=== PATIENT | female | born 1975 | race Caucasian/White ===

== ENCOUNTER 2020-01-26 17:49 | Emergency (ER) | payer OTHER ==
--- NOTE | 2020-01-26 17:54 | PDOC ---
Attending Attestation - Resident Resident Name: Jluien Srivastava - ED Attending Attestation I have performed the following: I have examined & evaluated the patient, The case was reviewed & discussed with the resident, I agree w/resident's findings & plan, Exceptions are as noted - HPI HPI: 01/26/20 18:04 44yo female with hx of breast ca s/p b/l mastectomy and recontructive sx, last sx was 2m ago at [facility], with epigastric burning with a burning sensation that radiates through her chest. No assoc sob. Staets sour taste in back of her mouth. Pt with amox about a week ago for a sinus infection, which has improved, then drank a homemade "green" juice with kale, spinach, green apple and an entire lemon yesterday followed by a salad with lemon dressing - 1 episode of n/ v yesterday- nbnb, no diarrhea. No f/c. No abd pain. No other complaints. - Physicial Exam PE: 01/26/20 18:06 Gen: aaox3, uncomfortable, tearful, overwhelmed heart: +s1s2 reg lungs: cta b/l abd: soft, nt/nd +bs ext: no c/c/e - Medical Decision Making 01/26/20 18:06 a/p: 44yo female with epigastric burning -suspect gastritis with gerd from recent abx and lemon juice use/green juice -no abd ttp -no cp, but feels burning in her chest -will send labs, ekg, meds -zofran, pepcid, gi cocktail -will monitor and reassess 01/26/20 19:18 chem hemolyzed, will resend 01/26/20 19:18 no elevated wbc pt signed out pending labs and re-eval of epigastric burning Heart Score/ECG Review - ECG Intrepretation Comment:: 01/26/20 18:43 sinus at 81, nl axis, nl interval, no acute st/t wave findings
[2020-01-26] MEDS ORDERED: LIDOCAINE VISCOUS 2% ORAL/TOP 20 ML UNIT-DOSE CUP MM ONE (18:03)
[2020-01-26] MEDS ORDERED: ONDANSETRON 4 MG/2 ML VIAL IVPUSH ONE (18:03)
[2020-01-26] MEDS ORDERED: FAMOTIDINE 20 MG/50 ML IVPB 20 MG/50 ML MG IVPB ONE ×2 (18:03→18:14)
[2020-01-26] MEDS ORDERED: MAG HYDROX/AL HYDROX/SIMETH 30 ML UNIT-DOSE CUP PO ONE (18:03)
[2020-01-26] MEDS ORDERED: SODIUM CHLORIDE 0.9% 1000 ML INFUS.BAG IV ONE (18:03)
[2020-01-26 18:12] VITALS: BP 113/92; PULSE 86; TEMP 98.3; BMI 25.0
[2020-01-26] MEDS ORDERED: LIDOCAINE VISCOUS 2% ORAL/TOP 20 ML UNIT-DOSE CUP ONE (18:14)
[2020-01-26] MEDS ORDERED: LIDOCAINE VISCOUS 2% ORAL/TOP 100 ML BOTTLE MM ONE (18:14)
[2020-01-26] MEDS ORDERED: ONDANSETRON 4 MG/2 ML VIAL ONE ×2 (18:14→20:01)
[2020-01-26] MEDS ORDERED: MAG HYDROX/AL HYDROX/SIMETH 30 ML UNIT-DOSE CUP ONE (18:14)
--- NOTE | 2020-01-26 18:15 | PDOC ---
History of Present Illness - General Chief Complaint: Pain, Acute Stated Complaint: ABDOMINAL BURNING NAUSEA VOMITING YESTERDAY Time Seen by Provider: 01/26/20 17:53 - History of Present Illness Initial Comments: Jessica Linn is a 44 y/o female with pmh significant for breast CA s/p bilateral mastectomy, presenting today with a burning sensation in the epigastrium radiating up through her chest. Reports that she was sick with sinusitis a week ago and was given amoxicillin. Yesterday morning she started having the burning sensation. Reports that the sensation has stayed constant and is not made better/worse by anything. Denies radiation of the pain. pain is non reproducible. Denies chest pain/shortness of breath. Denies headache. Denies fever/chills. Reports nausea and vomiting x1. Denies change in stool or urine. Denies leg swelling. Past History - Past Medical History Allergies/Adverse Reactions: Allergies Allergy/AdvReac Type Severity Reaction Status Date / Time No Known Allergies Allergy Unverified 01/26/20 17:51 Home Medications: Ambulatory Orders Famotidine [Pepcid -] 20 mg PO BID #20 tablet 01/26/20 Venlafaxine HCl ER [Effexor Xr -] 75 mg PO DAILY 01/26/20 Ranitidine HCl 75 mg PO BID #14 tablet 01/27/20 Cancer: Yes (breast) COPD: No - Psycho Social/Smoking Cessation Hx Smoking History: Never smoked Information on smoking cessation initiated: No Hx Alcohol Use: Yes (social) Drug/Substance Use Hx: No Review of Systems - Review of Systems Comments:: GENERAL/CONSTITUTIONAL: No fever or chills. No weakness._ HEAD, EYES, EARS, NOSE AND THROAT: No change in vision. No change in hearing. No sore throat._ CARDIOVASCULAR: No chest pain or shortness of breath_ RESPIRATORY: Denies cough, hemoptysis_ GASTROINTESTINAL: Reports burning sensation in epigastrium. Reports nausea, vomiting x1, diarrhea x1. GENITOURINARY: No dysuria, frequency, or change in urination._ MUSCULOSKELETAL: No joint or muscle swelling or pain. No neck or back pain._ SKIN: No rash_ NEUROLOGIC: No headache, vertigo, loss of consciousness, or change in strength/ sensation._ ENDOCRINE: No increased thirst. No abnormal weight change_ HEMATOLOGIC/LYMPHATIC: No anemia, easy bleeding, or history of blood clots._ ALLERGIC/IMMUNOLOGIC: No hives or skin allergy._ *Physical Exam - Vital Signs Last Vital Signs Temp Pulse Resp BP Pulse Ox 98.3 F 86 18 113/92 98 01/26/20 17:50 01/26/20 17:50 01/26/20 17:50 01/26/20 17:50 01/26/20 17:50 - Physical Exam GENERAL: Awake, alert, and oriented to person/place/time, in no acute distress_ HEAD: No signs of trauma, normocephalic, atraumatic _ EYES: PERRLA, EOMI, sclera anicteric, conjunctiva clear_ ENT: Hearing grossly normal, nares patent, oropharynx clear without exudates. No uvular deviation. Moist mucosa_ NECK: Normal ROM, supple, no lymphadenopathy, JVD, or masses_ LUNGS: No distress, speaks in full sentences, clear to auscultation bilaterally _ HEART: Regular rate and rhythm, normal S1 and S2, no murmurs appreciated, peripheral pulses normal and equal bilaterally._ ABDOMEN: Soft, nontender, normoactive bowel sounds. No guarding, no rebound. No masses_ EXTREMITIES: Normal inspection, Normal range of motion, no edema. No clubbing or cyanosis_ NEUROLOGICAL: Cranial nerves II through XII grossly intact. Normal speech, normal gait, no focal sensorimotor deficits _ SKIN: Warm, Dry, normal turgor, no rashes or lesions noted_ ED Treatment Course - LABORATORY CBC & Chemistry Diagram: 01/26/20 18:20 01/26/20 16:20 Medical Decision Making - Medical Decision Making 01/26/20 18:14 44F presenting with burning sensation from epigastrium going up through the chest. -cbc, cmp -ekg, trop -upreg -pepcid, maalox, zofran, fluids 01/26/20 18:41 EKG shows NSR, 81 bpm, no ST elevation/depression, QTc 427. 01/26/20 19:00 Pt signed out to Dr. Johnson. Discharge - Discharge Information Problems reviewed: Yes Clinical Impression/Diagnosis: GERD with esophagitis Condition: Improved Disposition: HOME - Additional Discharge Information Prescriptions: Famotidine [Pepcid -] 20 mg PO BID #20 tablet Ranitidine HCl 75 mg PO BID #14 tablet - Follow up/Referral - Patient Discharge Instructions Patient Printed Discharge Instructions: DI for Gastroesophageal Reflux Disease (GERD) Additional Instructions: Pepcid 20 mg twice a day until seen by your doctor You can take antacids during the day if you have any recurrent pain while taking Pepcid Avoid large meals;do not lie down until 2 hours after eating a meal Elevate head of bed or use extra pillows at night Avoid acidic foods, alcohol, peppermint, fatty foods Call your doctor in AM to arrange follow-up within the next 2 to 3 days Return to ER if you have persistent, severe pain or persistent vomiting - Post Discharge Activity
[2020-01-26 18:40] LABS: EOS % 0.5 % (0-4.5); HEMATOCRIT 41.1 % (32.4-45.2); HEMOGLOBIN 13.8 GM/dl (10.7-15.3); LYMPH % 19.8 % (8-40); MCH 30.7 pg (25.7-33.7); MCHC 33.6 g/dl (32.0-36.0); MEAN CELL VOLUME 91.3 fl (80-96); MEAN PLT VOLUME 8.6 fl (7.5-11.1); MONO % 4.1 % (3.8-10.2); NEUT % 74.6 % (42.8-82.8); PLATELET COUNT 337 K/MM3 (134-434); RDW 13.7 % (11.6-15.6)
[2020-01-26 19:44] LABS: ALBUMIN 4.6 g/dl (3.4-5.0); BILIRUBIN,TOTAL 0.6 mg/dl (0.2-1); CALCIUM 9.8 mg/dl (8.5-10); CREATININE 0.5 mg/dl (0.55-1.3); POTASSIUM 3.7 mmol/L (3.5-5.1); TOT PROT 8.1 g/dl (6.4-8.2)
[2020-01-26] MEDS ORDERED: ONDANSETRON 4 MG/2 ML VIAL IVPB ONE (19:49)
--- NOTE | 2020-01-26 20:27 | PDOC ---
*Physical Exam - Vital Signs Last Vital Signs Temp Pulse Resp BP Pulse Ox 98.3 F 86 18 113/92 98 01/26/20 17:50 01/26/20 17:50 01/26/20 17:50 01/26/20 17:50 01/26/20 17:50 ED Treatment Course - LABORATORY CBC & Chemistry Diagram: 01/26/20 18:20 01/26/20 16:20 - ADDITIONAL ORDERS Additional order review: Laboratory Results 01/26/20 01/26/20 01/26/20 18:20 18:06 16:20 Sodium Cancelled 139 Potassium Cancelled 3.7 Chloride Cancelled 105 Carbon Dioxide Cancelled 24 Anion Gap Cancelled 10 BUN Cancelled 16.0 Creatinine Cancelled 0.5 L Est GFR (CKD-EPI)AfAm Cancelled 134.52 Est GFR (CKD-EPI)NonAf Cancelled 116.07 Random Glucose Cancelled 111 H Calcium Cancelled 9.8 Total Bilirubin Cancelled 0.6 AST Cancelled 22 ALT Cancelled 20 Alkaline Phosphatase Cancelled 89 Creatine Kinase 115 Troponin I < 0.03 Total Protein Cancelled 8.1 Albumin Cancelled 4.6 01/26/20 18:20 RBC 4.50 MCV 91.3 MCHC 33.6 RDW 13.7 MPV 8.6 Neutrophils % 74.6 Lymphocytes % 19.8 Monocytes % 4.1 Eosinophils % 0.5 Basophils % 1.0 - Medications Given in the ED: ED Medications Discontinued Medications Generic Name Dose Route Start Last Admin Trade Name Freq PRN Reason Stop Dose Admin Al Hydroxide/Mg Hydroxide 30 ml 01/26/20 18:03 01/26/20 18:27 Mylanta Oral Suspension - PO 01/26/20 18:04 30 ml ONCE ONE Administration Famotidine/Sodium Chloride 20 mg in 50 mls @ 100 mls/hr 01/26/20 18:03 18:27 Pepcid 20 Mg Premixed Ivpb - IVPB 01/26/20 18:32 100 mls/hr ONCE ONE Administration Lidocaine HCl 20 ml 01/26/20 18:03 01/26/20 18:16 Xylocaine 2% Viscous Oral - MM 01/26/20 18:04 Not Given ONCE ONE Lidocaine HCl 15 ml 01/26/20 18:14 01/26/20 18:27 Xylocaine 2% Viscous MM 01/26/20 18:15 15 ml ONCE ONE Administration Ondansetron HCl 4 mg 01/26/20 18:03 01/26/20 18:23 Zofran Injection IVPUSH 01/26/20 18:04 4 mg ONCE ONE Administration Ondansetron HCl 4 mg 01/26/20 19:49 01/26/20 20:05 Zofran Injection IVPB 01/26/20 19:50 4 mg ONCE ONE Administration Sodium Chloride 1,000 ml 01/26/20 18:03 01/26/20 18:23 Normal Saline - IV 01/26/20 18:04 1,000 ml ONCE ONE Administration Medical Decision Making - Medical Decision Making 01/26/20 20:29 Care of this patient received from Dr. Velázquez Patient received 1 L normal saline IV, famotidine IV, Zofran 4 mg IV, antacid/ lidocaine by mouth. After above medications, patient states that she no longer has burning pain but does have persistent nausea. Second dose of Zofran 4 mg IV given. 30 minutes after dose of Zofran 4 mg IV, patient is complaining of persistent nausea. Patient unable to produce urine specimen for PGU; patient states that it is "impossible" for her to be . Reglan 10 mg IV ordered for the patient's persistent nausea. Reexamination of the patient 20 minutes after Reglan administered: Nausea has resolved Patient was discharged with recommendations for light diet, avoiding GERD triggering foods such as acidic foods, alcohol, spicy foods, chocolate or peppermint. Patient is also been advised not to lie down sooner than 2 hours after meal, to avoid large meals and to elevate the head of her bed. She should follow-up with her general doctor within the next 2 to 3 days. Meanwhile , she will be started on Pepcid 20 mg twice a day; she can use antacids as needed if she has any breakthrough burning epigastric or chest pain. She should return to the emergency room if she has persistent pain or recurrent severe nausea. Discharge - Discharge Information Problems reviewed: Yes Clinical Impression/Diagnosis: GERD with esophagitis Condition: Improved Disposition: HOME - Additional Discharge Information Prescriptions: Famotidine [Pepcid -] 20 mg PO BID #20 tablet - Follow up/Referral - Patient Discharge Instructions Patient Printed Discharge Instructions: DI for Gastroesophageal Reflux Disease (GERD) Additional Instructions: Pepcid 20 mg twice a day until seen by your doctor You can take antacids during the day if you have any recurrent pain while taking Pepcid Avoid large meals;do not lie down until 2 hours after eating a meal Elevate head of bed or use extra pillows at night Avoid acidic foods, alcohol, peppermint, fatty foods Call your doctor in AM to arrange follow-up within the next 2 to 3 days Return to ER if you have persistent, severe pain or persistent vomiting - Post Discharge Activity
[2020-01-26] MEDS ORDERED: METOCLOPRAMIDE HCL INJECTION 10 MG/2 ML VIAL IVPB ONE (20:28)
[2020-01-26] MEDS ORDERED: METOCLOPRAMIDE HCL INJECTION 10 MG/2 ML VIAL ONE (20:31)
--- NOTE | 2020-01-27 11:55 | EKG ---
Test Reason : Blood Pressure : / mmHG Vent. Rate : 081 BPM Atrial Rate : 081 BPM P-R Int : 130 ms QRS Dur : 076 ms QT Int : 368 ms P-R-T Axes : 052 049 032 degrees QTc Int : 427 ms NORMAL SINUS RHYTHM NORMAL ECG NO PREVIOUS ECGS AVAILABLE Confirmed by WINNIE GOMEZ MD ([id number]) on 01/27/2020 11:54:57 AM Referred By: MD RAMAN Confirmed By:WINNIE GOMEZ MD
== END 2020-01-26 21:06 | disposition home or self-care (01) ==
LOC: FER 17:49
PROC: 3E033GC Introduction of Other Therapeutic Substance into Peripheral Vein, Percutaneous Approach (ICD-10-PCS; principal; 2020-01-26)
DX: K21.0 Gastro-esophageal reflux disease with esophagitis (principal)
CPT/HCPCS: 36415; 80053; 82550; 84484; 85025; 93005; 99284-25; J7030